=== PATIENT | female | born 1990 | race Caucasian/White ===

== ENCOUNTER 2018-07-30 11:26 | Emergency (ER) | payer MEDICAID ==
[~2018-07-30] VITALS: Ht 152.4 cm; Wt 59.0 kg
[2018-07-30 12:29] VITALS: BP 139/92
== END 2018-07-30 13:14 | disposition home or self-care (01) ==
LOC: EMS 11:31
DX: K08.89 Other specified disorders of teeth and supporting structures (principal)

== ENCOUNTER 2018-09-14 10:36 | Emergency (ER) | payer MEDICAID ==
[~2018-09-14] VITALS: Ht 149.9 cm; Wt 61.4 kg
[2018-09-14] MEDS ORDERED: PredniSONE 20 MG TABLET PO ONE (12:45)
[2018-09-14] MEDS ORDERED: OxyCODONE HCL/ACETAMINOPHEN 5-325 MG TABLET PO ONE (12:45)
[2018-09-14] MEDS ORDERED: ACYCLOVIR 200 MG CAPSULE PO ONE (12:45)
[2018-09-14 13:02] VITALS: BP 116/68
== END 2018-09-14 13:20 | disposition home or self-care (01) ==
LOC: EMS 10:37
DX: B02.9 Zoster without complications (principal)
CPT/HCPCS: 99284; J7512